=== PATIENT | female | born 2000 | race Caucasian/White ===

== ENCOUNTER 2023-01-24 03:57 | Emergency (ER) | payer OTHER ==
[~2023-01-24] VITALS: Ht 152.4 cm; Wt 64.0 kg
[2023-01-24 04:12] VITALS: BP 121/81; RESP 18; TEMP 98.4; O2SAT 99
[2023-01-24 04:13] VITALS: PULSE 107
[2023-01-24 05:18] LABS: CLARITY URINE TURBID (CLEAR); COLOR URINE YELLOW (YELLOW); GLUCOSE URINE NEGATIVE (NEGATIVE); KETONES URINE TRACE (NEGATIVE); LEUKOCYTE ESTERASE URINE 1+ (NEGATIVE); NITRITE URINE NEGATIVE (NEGATIVE); OCCULT BLOOD URINE 3+ (NEGATIVE); PH URINE 5.5 (4.5-8.0); PROTEIN URINE 1+ (NEGATIVE); SPECIFIC GRAVITY URINE 1.025 (1.005-1.030)
[2023-01-24 05:22] LABS: SQUAMOUS EPITHELIAL CELL URINE 1+ /lpf (RARE/1+); YEAST URINE NONE SEEN
[2023-01-24 05:53] LABS: BACTERIA URINE 1+
== END 2023-01-24 05:43 | disposition left against medical advice (07) ==
LOC: ER 03:57
DX: Z53.21 Procedure and treatment not carried out due to patient leaving prior to being seen by health care provider (principal)
CPT/HCPCS: 81003; 81025; 99281